=== PATIENT | female | born 1945 ===

== ENCOUNTER 2017-11-23 12:30 | Inpatient (IN) | payer OTHER ==
[~2017-11-23] VITALS: Ht 157.5 cm; Wt 59.0 kg
[2017-11-23] MEDS ORDERED: IRBESARTAN-HCT1 EAC1 PO (16:03)
[2017-11-23] MEDS ORDERED: NORVASC5 MG PO (16:03)
[2017-11-23] MEDS ORDERED: DAFLONEX-XL TA1 EACH PO (16:03)
[2017-11-23] MEDS ORDERED: ASA325 MG PO (16:03)
[2017-11-23] MEDS ORDERED: PROTONIX40 MG PO (16:04)
[2017-11-23] MEDS ORDERED: ZANTAC300 MG PO (16:04)
[2017-11-23] MEDS ORDERED: LIPITOR20 MG PO (16:05)
[2017-11-26] MEDS ORDERED: GABAPENTIN800 MG PO (09:52)
[2017-11-26] MEDS ORDERED: DOCUSATE SODIU100 MG PO (09:52)
[2017-11-26] MEDS ORDERED: CIPROFLOXACIN750 MG PO (09:53)
[2017-11-26] MEDS ORDERED: CLONAZEPAM1 MG PO (09:54)
[2017-11-26] MEDS ORDERED: PERCOCET 5-3251 EACH PO (09:54)
== END 2017-11-26 19:31 | DRG 460 ==
LOC: PED 11-25 05:00 → O/R 11-25 05:00 → SURG 11-25 10:30 → PED 11-25 11:33 → SURG 11-25 12:30 → PED 11-26 19:31
PROVIDERS: Orthopaedic Surgery Orthopaedic Surgery of the Spine
PROC: 0ST20ZZ Resection of Lumbar Vertebral Disc, Open Approach (ICD-10-PCS; 2017-11-25)
PROC: 07DS3ZZ Extraction of Vertebral Bone Marrow, Percutaneous Approach (ICD-10-PCS; 2017-11-25)
PROC: 00NY0ZZ Release Lumbar Spinal Cord, Open Approach (ICD-10-PCS; 2017-11-25)
PROC: 0SG00A0 Fusion of Lumbar Vertebral Joint with Interbody Fusion Device, Anterior Approach, Anterior Column, Open Approach (ICD-10-PCS; principal; 2017-11-25 10:30)
PROC: 0SG00AJ Fusion of Lumbar Vertebral Joint with Interbody Fusion Device, Posterior Approach, Anterior Column, Open Approach (ICD-10-PCS; 2017-11-25 10:30)
DX: M96.1 Postlaminectomy syndrome, not elsewhere classified (principal); M48.061 Spinal stenosis, lumbar region without neurogenic claudication; M48.07 Spinal stenosis, lumbosacral region; M51.37 Other intervertebral disc degeneration, lumbosacral region; I10 Essential (primary) hypertension

== ENCOUNTER 2025-01-03 07:43 | Day surgery (SDC) | payer OTHER ==
[~2025-01-03 07:43] MED LIST: ASA325 MG PO; BAYER THERAPY325 MG PO; CEFAZOLIN SODIUM 1,000 MG VIAL IV SCH; CIPROFLOXACIN750 MG PO; CLEOCIN HCL300 MG PO; CLONAZEPAM1 MG PO; COLACE100 MG PO; COZAAR25 MG PO; COZAAR50 MG PO; DAFLONEX-XL 11300 MG PO; DAFLONEX-XL TA1 EACH PO; DOCUSATE SODIU100 MG PO; ECOTRIN325 M1 PO; GABAPENTIN800 MG PO; IRBESARTAN-HCT1 EAC1 PO; LEVOFLOXACIN500 MG PO; LIPITOR20 MG PO; MEDROLPACK PO; NORVASC5 MG PO; PANTOPRAZOLE SO40 MG PO; PERCOCET 5-3251 EACH PO; PROTONIX40 MG PO; TOPROL XL25 M1 PO; TUSSI PRES-B L480 ML PO; ZANTAC300 MG PO; ZOLOFT25 MG PO
[2025-01-03] MEDS ORDERED: TRAM1TAB98 PO (14:33)
[2025-01-03] MEDS ORDERED: CEPHALEXIN250 MG PO (14:34)
[2025-01-03] MEDS ORDERED: GENTAMICIN SULFATE 40 MG/ML VIAL IR ONE (15:00)
[2025-01-03] MEDS ORDERED: BUPIVACAINE HCL 30 ML VIAL IJ ONE (15:00)
[2025-01-03] MEDS ORDERED: LIDOCAINE HCL 1% 20 ML VIAL IJ ONE (15:00)
== END 2025-01-03 16:45 | disposition home or self-care (01) ==
LOC: CIR.AMB 07:43
PROVIDERS: ATTEND Obstetrics & Gynecology Gynecology
DX: N39.41 Urge incontinence (principal); T85.111A Breakdown (mechanical) of implanted electronic neurostimulator of peripheral nerve electrode (lead), initial encounter; T85.113A Breakdown (mechanical) of implanted electronic neurostimulator, generator, initial encounter; N32.81 Overactive bladder; R15.9 Full incontinence of feces; Z88.0 Allergy status to penicillin; Z88.2 Allergy status to sulfonamides